=== PATIENT | male | born 1990 | race Caucasian/White ===

== ENCOUNTER 2023-10-21 20:18 | Emergency (ER) | payer SELFPAY | END 2023-10-21 21:17 | disposition home or self-care (01) | LOC: ERS 20:18 | DX: Z00.00 Encounter for general adult medical examination without abnormal findings (principal) | CPT/HCPCS: 99284 ==

== ENCOUNTER 2024-08-09 16:45 | Emergency (ER) | payer SELFPAY ==
[2024-08-09] MEDS ORDERED: diphenhydrAMINE 25 MG CAP ONE (17:41)
[2024-08-09] MEDS ORDERED: Dexamethasone 10 MG/ML VIAL ONE (17:41)
[2024-08-09] MEDS ORDERED: Famotidine 20 MG TAB ONE (18:14)
== END 2024-08-09 18:27 | disposition home or self-care (01) ==
LOC: ERS 16:45
DX: L50.9 Urticaria, unspecified (principal); F17.210 Nicotine dependence, cigarettes, uncomplicated
CPT/HCPCS: 71046; J1100